=== PATIENT | female | born 1990 | race Caucasian/White ===

== ENCOUNTER 2019-11-11 20:34 | Emergency (ER) | payer BC ==
[~2019-11-11] VITALS: Ht 170.2 cm; Wt 59.0 kg
[2019-11-11 20:53] VITALS: BP 139/70
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
[2019-11-11] MEDS ORDERED: BACTRIM DS TAB1 EAC1 ORAL (20:59)
[2019-11-11] MEDS ORDERED: IBUPROFEN600 M1 ORAL (20:59)
[2019-11-11] MEDS ORDERED: MUPIROCIN22 GM TOPIC (20:59)
--- NOTE | 2019-11-11 21:00 | NUR ---
ED Nurse Note: Pt taken to CT in stable condition, vss no ss of distress noted.
--- NOTE | 2019-11-11 21:06 | NUR ---
ED Nurse Note: Pt returned from CT in stable condition, VSS no ss of distress noted.
--- NOTE | 2019-11-11 21:07 | NUR ---
ED Nurse Note: STAIN SPRAYER at bedside for wound irrigation
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
--- NOTE | 2019-11-11 21:14 | NUR ---
ED Nurse Note: ERMD at bedside
--- NOTE | 2019-11-11 21:25 | NUR ---
ED Nurse Note: ERMD at bedside applies sutures. Pt tolerating well no ss of distress noted. VSS
[2019-11-11] MEDS ORDERED: Tylenol #3 tab (300mg/30mg) ONE (21:29)
[2019-11-11] MEDS ORDERED: Bactrim-DS 1 tab ORAL ONE (21:30)
--- NOTE | 2019-11-11 21:30 | NUR ---
ED Nurse Note: Bandages applied to laceration area, pt tolerated well no ss of distress noted.
[2019-11-11] MEDS ORDERED: ACETAMINOPHEN-1 EAC1 ORAL (21:39)
[2019-11-11 21:46] VITALS: BP 139/70
--- NOTE | 2019-11-11 21:46 | NUR ---
ER DISCHARGE NOTE: Patient is cleared to be discharged home per ERMD, pt is aox4, 99% on room air, with stable vital signs. pt was given dc and prescription instructions, pt was able to verbalize understanding, pt id band removed. pt is able to ambulate with steady gait. pt took all belongings.
[2019-11-11] MEDS ORDERED: HYDROcodone/Acetamin 5/325 tab ORAL ONE (22:00)
[2019-11-11] MEDS ORDERED: Tylenol #3 tab (300mg/30mg) ORAL ONE (22:00)
== END 2019-11-11 21:46 | disposition home or self-care (01) ==
LOC: EMR 21:46
DX: S01.81XA Laceration without foreign body of other part of head, initial encounter (principal); W17.89XA Other fall from one level to another, initial encounter; Y93.55 Activity, bike riding; Y92.9 Unspecified place or not applicable; Z88.0 Allergy status to penicillin; Z88.1 Allergy status to other antibiotic agents
CPT/HCPCS: 70486; 99284